=== PATIENT | female | born 2005 | race African-American/Black ===

== ENCOUNTER 2024-06-18 20:46 | Observation (INO) ==
--- NOTE | 2024-06-18 21:07 | Emergency Department Note ---
HPI - Skin/Abscess/Foreign Bdy General Chief complaint: Allergic Reaction Stated complaint: poss hives Time Seen by Provider: 06/18/24 20:48 Source: patient and family Mode of arrival: walk-in Limitations: no limitations History of Present Illness HPI narrative: 18-year-old female presents to ER with complaint of generalized body rash that she has been experiencing off and on for a while, patient reports that she has not taken anything for her rash today. The area is not erythemic; however, it is raised and patient reports that it itches. MD complaint: Reports rash Onset (ago): day(s) (1) Tetanus up to date: yes Location: Reports generalized Severity: moderate Quality: Reports other (Imaging) Pain Consistency: Reports constant Relieving factors: Reports none Exacerbating factors: Reports palpation and movement Context: Reports other (Previous occurrences) Associated symptoms: Reports itching and myalgias Treatments prior to arrival: Reports none Related Data Previous Rx's Medication Instructions Recorded methylprednisolone 4 mg tablets in See Rx Instructions PO .COMPLEX 03/30/24 a dose pack (Medrol ([facility])) Inflammation #21 ea Allergies Allergy/AdvReac Type Severity Reaction Status Date / Time SEAFOOD Allergy Unknown Uncoded 06/18/24 21:26 Review of Systems Status of ROS 10 or more systems reviewed and unremark able except as noted in history and below Constitutional Reports: fatigue; Denies: fever, chills, change in weight, malaise, night sweats or change in sleep pattern Eyes Denies: change in vision, blurry vision, blind spots, light sensitivity, eye discomfort, eye discharge, dry eyes, increased production of tears, floaters, seeing flashes or decreased night vision Ears, nose, mouth, and throat Denies: throat pain, neck pain, throat swelling, difficulty swallowing, hoarseness, mouth pain, swelling of lips/tongue, dry mouth, bad breath, ear pain, ear discharge, change in hearing, tinnitus, vertigo, nasal discharge, nasal congestion, nose bleeds or post nasal drip Cardiovascular Reports: swelling of feet/ankles; Denies: chest pain, palpitations, edema, lightheadedness, shortness of breath with exertion, shortness of breath when lying down, leg pain with exertion or bluish discoloration of hands/feet Respiratory Denies: shortness of breath, cough, wheezing, stridor, pain on inspiration, change in phlegm color, coughing up blood or chest congestion Gastrointestinal Denies: abdominal pain, nausea, vomiting, coffee grounds in vomit, heartburn, diarrhea, constipation, bloating, belching, excessive passing of gas, difficulty swallowing, feeling full early, change in bowel habits, painful bowel movements, rectal pain, rectal swelling, rectal itching, change in stool character, blood in stool, mucus in stool, white/light colored stool or fatty stool Genitourinary Denies: painful urination, urinary frequency, urinary urgency, urinary incontinence, blood in urine, difficulty voiding, decreased urine ouput, pelvic pain, painful menstruation, vaginal bleeding, vaginal discharge, irregular period, change in menstrual flow, absence of menstruation, genital lesion, genital itching, vaginal dryness, vaginal odor, pain during intercourse, difficulty conceiving or change in libido Musculoskeletal Denies: back pain, neck pain, extremity pain, extremity swelling, joint pain, limited range of motion, joint swelling, muscle cramps, muscle weakness or loss of height Integumentary/Breast Reports: rash, itching and skin tenderness; Denies: redness, skin pain, skin swelling, sores, new lesion, changing lesion, non- healing lesion, changes in skin color, jaundice, stretch whyte, acne, nail changes, change in hair, breast pain, breast swelling, nipple discharge, breast mass, breast skin changes or change in breast shape Neurological Denies: headache, numbness in extremities, weakness in extremities, lack of coordination, dizziness, vertigo, confusion, behavioral changes, slurred speech, difficulty communicating thoughts, seizure-like activity or involuntary movements Psychiatric Denies: anxiety, mood swings, panic attacks, change in sleep pattern, hopelessness, loss of interest, irritability, paranoia, memory loss, difficulty concentrating, visual hallucinations, auditory hallucinations, tactile hallucinations, suicidal ideation or homicidal ideation Endocrine Denies: excessive urination, excessive thirst, fatigue, cold intolerance, excessive sweating, flushing, heat intolerance, deepening of the voice, change in body appearance or change in libido Hematologic/Lymphatic Denies: easy bruising, easy bleeding or enlarged lymph nodes Allergic/Immunologic Reports: wheezing; Denies: hives, throat swelling, tongue swelling, facial swelling, itchy eyes, seasonal allergies or food intolerance [facility] Medical History (Updated 03/30/24 @ 15:16 by Jamar Felming NP) Eczema Diabetes Surgical History (Updated 03/30/24 @ 13:11 by Yuly Zarco RN) History of surgery Social History Smoking status: never smoker Do you use any of these nicotine containing products: e-cigarettes Within the past year, how often did you have a drink containing alcohol: never Score interpretation: A score less than 3 is consistent with normal alcohol consumption. Non-prescribed substance use: denies use Feel stressed/tense/nervous/anxious/difficulty sleeping: to some extent Life stressors: other (none) Life stressor details: Current medical condition Due to disability, difficulty making decisions: No Exam Constitutional: normal general appearance, distress noted (moderate), average body habitus, no limitations and alert Vital Signs - 24 hr 06/18/24 21:17 Temperature 97.9 F Pulse Rate 119 H Respiratory Rate 19 Blood Pressure 112/79 Pulse Oximetry 99 Oxygen Delivery Me thod Room Air HENMT: normocephalic, head/scalp atraumatic, hearing grossly normal bilaterally, external ears normal, EACs normal, nasal mucous membranes normal, external nose normal, oral mucous membranes normal, oropharynx normal, dentition normal and gingiva normal Eyes: PERRL, EOMs intact bilaterally, conjunctivae normal, no scleral icterus, no papilledema, normal visual haney by confrontation, alignment normal, periorbital findings normal and no nystagmus Neck/C-Spine: visual inspection normal, trachea midline, cervical spine nontender, cervical full ROM noted, supple, no meningeal signs, thyroid normal and no carotid bruits Lymph: no lymphadenopathy noted and no lymphedema noted Chest: inspection of chest normal, inspection of breast(s) abnormal (deferred) and palpation of breast(s) abnormal (deferred) Respiratory: breath sounds equal bilaterally, normal respiratory effort, clear to auscultation bilaterally, no wheezes, no rales, no retractions and no use of accessory muscles Cardiovascular: normal heart rate noted, regular rhythm noted, no JVD, peripheral pulses 2+ throughout and no additional abnormal heart sounds Gastrointestinal: abdomen normal to inspection, abdomen soft to palpation, nontender to palpation, nondistended, normoactive bowel sounds, no hepatosplenomegaly, no masses, no pulsatile mass, no ascites, no hernia and rectal exam abnormal (deferred) Genitourinary: no CVA tenderness, bladder normal to palpation, vaginal abnormality noted (deferred) and cervical abnormality noted (deferred) Back/Pelvis: spine normal to inspection, no thoracic spine tenderness, no lumbar spine tenderness, thoracic spine ROM normal, lumbar spine ROM normal and no paraspinal muscle tenderness noted Extremities: normal to inspection, normal to palpation, no tenderness, full ROM, no joint enlargement and no deformity Neurology: ink blender II-XII intact, no movement abnormality noted, no focal motor deficit noted, no sensory deficits noted, gait normal, speech normal, coordination normal, no pronator drift noted, no fasciculations noted and GCS normal Psychiatry: Mental Status Exam documented within this Exam's Psych section mental status grossly normal, oriented x3, thought process normal, cooperative, affect normal, psychomotor activity normal and memory normal Feel stressed/tense/nervous/anxious/difficulty sleeping: to some extent Life stressors: other (none) Life stressor details: Current medical condition Due to disability, difficulty making decisions: No Skin: skin color normal, rash noted, no lesions, no ecchymosis noted, no wounds, no lacerations, skin turgor normal, no jaundice, no petechiae, no mottling, nails normal and no alopecia Patient has noted rash about the body is raised but is not erythemic, patient reports she has this rash nearly every day he has not taken anything for today and is not getting better. Course Course Hospital Course: 18-year-old female presented ER with complaint of generalized body rash has been evaluated by physical exam, CBC, BMP, urinalysis, [id number] glucose and has been found to have hyperglycemia and hypokalemia as well as a generalized rash. Patient has been treated with Benadryl, Pepcid, and Solu-Medrol which has right her rash again; however, patient's glucose has been found to be hyperglycemic at over 400 and her potassium is low at 3.1. Patient will receive normal saline IV as well as 10 units of regular insulin and potassium p.o. and will be admitted to the [facility] floor for ongoing electrolyte replacement, glucose control, and monitoring to ensure rash does not return. Patient and family agree with treatment plan. Vital Signs Vital signs: Vital Signs Temperature 97.9 F 06/18/24 21:17 Pulse Rate 119 H 06/18/24 21:17 Respiratory Rate 19 06/18/24 21:17 Blood Pressure 112/79 06/18/24 21:17 Pulse Oximetry 99 06/18/24 21:17 Oxygen Delivery Method Room Air 06/18/24 21:17 Temperature 97.9 F 06/18/24 21:17 Pulse Rate 119 H 06/18/24 21:17 Respiratory Rate 19 06/18/24 21:17 Blood Pressure 112/79 06/18/24 21:17 Pulse Oximetry 99 06/18/24 21:17 Oxygen Delivery Method Room Air 06/18/24 21:17 Discharge Plan Discharge Patient Disposition: Admitted As Observation Condition: Stable Chief Complaint: Allergic Reaction Clinical Impression: Allergic reaction, Uncontrolled diabetes mellitus with hyperglycemia, with lo ng-term current use of insulin, Hypokalemia, Fatigue Prescriptions: No Action methylprednisolone [Medrol ([facility])] 4 mg tablets,dose pack See Rx Instructions .ROUTE .COMPLEX Qty: 21 0RF Rx Instructions: orally per package directions Print Language: Romanian Referrals: Provider,NO PCP [Primary Care Provider] - Time of Disposition: 23:00 MDM - Skin/Abscess/Foreign Bod MDM Narrative Medical decision making narrative: Medical decision making this patient above physical exam, CBC, BMP, urinalysis, and [id number] glucose. Differential Diagnosis Differential diagnosis: Likely viral exanthem, urticaria, cellulitis, eczema, contact dermatitis and other (Hypokalemia, hyperglycemia, hyponatremia, dehydration) Medical Records Attestation: I reviewed the patient's medical records. Lab Data Attestation: I reviewed the patient's lab results. Labs: Lab Results 06/18/24 06/18/24 06/18/24 Range/Units 21:15 21:30 22:16 WBC 11.0 H (4.3-9.3) K/uL RBC 5.2 (4.00-5.50) M/uL Hgb 9.6 L (12.5-15.8) gm/dL Hct 31.7 L (35.9-46.7) % MCV 61.3 L (81.0-93.7) fl MCH 18.6 L (27.6-32.2) pg MCHC 30.4 L (33.1-35.3) g/dl RDW 24.3 H (11.4-14.2) % Plt Count 731 H (152-353) K/uL MPV 8.3 (6.9-10.8) fl Gran % 64.8 (47.8-71.3) % Lymph % (Auto) 25.1 (20.0-43.0) % [place] % (Auto) 7.4 (3.6-9.8) % Eos % (Auto) 1.6 (0.4-2.8) % Baso % (Auto) 1.1 H (0.1-0.85) Lymph # (Auto) 2.8 (1.1-3.1) [place] # (Auto) 0.8 L (1.1-3.1) Eos # (Auto) 0.2 (0.0-0.2) Baso # (Auto) 0.1 (0.0-0.1) Absolute Gran (auto) 7.1 H (2.3-6.0) ABG pH 7.35 (7.35-7.45) ABG pCO2 33 L (35-45) mmHg ABG pO2 92 (60-100) mmHg ABG PO2/FiO2 Ratio ABG HCO3 (22-26) mmo1/L ABG Total CO2 mmo1/L ABG O2 Saturation (92-100) % ABG Base Excess (-2-2) mmo1/L A-a O2 Gradient mmHg Respiratory Index (0-1) FiO2 % Sodium 128 L (136-145) mmol/L Potassium 3.1 L (3.6-5.2) mmol/L Chloride 94.0 L (98-107) mmol/L Carbon Dioxide 22 (21-32) mmol/L Anion Gap 12.0 (4-14) mEq/L BUN 11 (7-18) mg/dL Creatinine 0.9 (0.6-1.3) mg/dL Estimated GFR 93.9 (>59.9) Glucose 410 H* (70-110) mg/dL Calcium 8.2 L (8.5-10.1) mg/dL Urine Color Yellow (STRAW/YELL.) Urine Appearance Hazy (CLEAR) Ur Specific [place] 1.010 (1.001-1.035) Urine Protein Negative (NEGATIVE) Urine Glucose (UA) 4+ (NORMAL) Urine Ketones Large (NEGATIVE) Urine Occult Blood Negative (NEG - TRACE) Urine Nitrite Negative (NEGATIVE) Urine Bilirubin Negative (NEGATIVE) Urine Urobilinogen Normal (NORMAL) Ur Leukocyte Esterase Negative (NEGATIVE) Fluid pH 6.0 (5 - 9) 06/18/24 Range/Units 22:16 WBC (4.3-9.3) K/uL RBC (4.00-5.50) M/uL Hgb (12.5-15.8) gm/dL Hct (35.9-46.7) % MCV (81.0-93.7) fl MCH (27.6-32.2) pg MCHC (33.1-35.3) g/dl RDW (11.4-14.2) % Plt Count (152-353) K/uL MPV (6.9-10.8) fl Gran % (47.8-71.3) % Lymph % (Auto) (20.0-43.0) % [place] % (Auto) (3.6-9.8) % Eos % (Auto) (0.4-2.8) % Baso % (Auto) (0.1-0.85) Lymph # (Auto) (1.1-3.1) [place] # (Auto) (1.1-3.1) Eos # (Auto) (0.0-0.2) Baso # (Auto) (0.0-0.1) Absolute Gran (auto) (2.3-6.0) ABG pH (7.35-7.45) ABG pCO2 (35-45) mmHg ABG pO2 108 (60-100) mmHg ABG PO2/FiO2 Ratio 0.85 ABG HCO3 18.2 L (22-26) mmo1/L ABG Total CO2 19.2 mmo1/L ABG O2 Saturation 97 (92-100) % ABG Base Excess -6.5 L (-2-2) mmo1/L A-a O2 Gradient 16 mmHg Respiratory Index 0.2 (0-1) FiO2 21 % Sodium (136-145) mmol/L Potassium (3.6-5.2) mmol/L Chloride (98-107) mmol/L Carbon Dioxide (21-32) mmol/L Anion Gap (4-14) mEq/L BUN (7-18) mg/dL Creatinine (0.6-1.3) mg/dL Estimated GFR (>59.9) Glucose (70-110) mg/dL Calcium (8.5-10.1) mg/dL Urine Color (STRAW/YELL.) Urine Appearance (CLEAR) Ur Specific [place] (1.001-1.035) Urine Protein (NEGATIVE) Urine Glucose (UA) (NORMAL) Urine Ketones (NEGATIVE) Urine Occult Blood (NEG - TRACE) Urine Nitrite (NEGATIVE) Urine Bilirubin (NEGATIVE) Urine Urobilinogen (NORMAL) Ur Leukocyte Esterase (NEGATIVE) Fluid pH (5 - 9)
[2024-06-18] MEDS: METHYLPREDNISOLONE SOD SUCC/PF 125 MG/2 ML VIAL IVP ONE (21:15)
[2024-06-18] MEDS: diphenhydrAMINE HCL 50 MG/ML VIAL IM ONE (21:15)
[2024-06-18] MEDS: FAMOTIDINE/PF 20 MG/2 ML VIAL IV ONE (21:15)
[2024-06-18 21:32] LABS: Basophils #(Absolute) Auto 0.1 (0.0-0.1); Basophils%(Percent) Auto 1.1 (0.1-0.85); Eosinophils#(Absolute)Auto 0.2 (0.0-0.2); Eosinophils%(Percent) Auto 1.6 % (0.4-2.8); Granulocytes % - Auto 64.8 % (47.8-71.3); Granulocytes#(Absolute)- Auto 7.1 (2.3-6.0); Hematocrit 31.7 % (35.9-46.7); Mean Corpuscular Volume 61.3 fl (81.0-93.7); Monocytes #(Absolute)- Auto 0.8 (1.1-3.1); Monocytes %(Percent)- Auto 7.4 % (3.6-9.8); Platelet Count 731 K/uL (152-353)
[2024-06-18 21:44] LABS: Potassium 3.1 mmol/L (3.6-5.2)
[2024-06-18 22:02] LABS: Urine Appearance HAZY (CLEAR); Urine Blood NEGATIVE (NEG - TRACE); Urine Color YELLOW (STRAW/YELL.); Urine Urobilinogen Normal (NORMAL)
[2024-06-18 22:26] LABS: Base Excess ABG -6.5 mmo1/L (-2-2); Oxygen Saturation ABG 97 % (92-100); PCO2 ABG 33 mmHg (35-45); PO2 ABG 92 mmHg (60-100); pH ABG 7.35 (7.35-7.45)
[2024-06-18] MEDS ORDERED: bisacodyL 10 MG SUPP.RECT PR PRN (23:47)
[2024-06-18] MEDS ORDERED: KETOROLAC 30 MG/ML INJ VIAL IVP PRN (23:47)
[2024-06-18] MEDS ORDERED: ACETAMINOPHEN 1000 MG/100 ML 1,000 MG/100 ML IV.SOLN IV PRN (23:47)
[2024-06-18] MEDS ORDERED: ONDANSETRON HCL/PF 4 MG/2 ML VIAL INJ PRN (23:47)
[2024-06-18] MEDS ORDERED: MORPHINE SULFATE 4 MG/ML CARTRIDGE IV PRN (23:47)
[2024-06-18] MEDS ORDERED: MAGNESIUM, ALUMINUM HYDROXIDE 30 ML ORAL.SUSP PO PRN (23:47)
[2024-06-19] MEDS: 0.9 % SODIUM CHLORIDE 1000 ML 1,000 ML IV SCH ×2 (00:20→08:41)
[2024-06-19] MEDS: 0.9 % SODIUM CHLORIDE 1000 ML 1,000 ML IV STA (00:22)
[2024-06-19] MEDS: diphenhydrAMINE HCL 25 MG CAP PO ONE (04:10)
[2024-06-19 05:18] LABS: Potassium 3.6 mmol/L (3.6-5.2)
[2024-06-19 05:31] LABS: Granulocytes % - Auto 93.9 % (47.8-71.3); Granulocytes#(Absolute)- Auto 10.4 (2.3-6.0); Hematocrit 29.6 % (35.9-46.7); Mean Corpuscular Volume 64.4 fl (81.0-93.7); Monocytes #(Absolute)- Auto 0.1 (1.1-3.1); Monocytes %(Percent)- Auto 0.7 % (3.6-9.8); Platelet Count 594 K/uL (152-353); White Blood Count 11.1 K/uL (4.3-9.3)
[2024-06-19 05:54] LABS: Anisocytosis 1+ (Negative); Hypochromia 2+ (20-21) (None Seen)
[2024-06-19] MEDS: POTASSIUM CHLORIDE 20 MEQ TAB.ER.PRT PO ONE (08:41)
[2024-06-19] MEDS: MAGNESIUM OXIDE 400 MG TABLET PO SCH (08:41)
[2024-06-19] MEDS: POTASSIUM CHLORIDE 20 MEQ TAB.ER.PRT PO SCH (09:31)
[2024-06-19 09:51] LABS: Potassium 3.6 mmol/L (3.6-5.2)
[2024-06-19 09:55] LABS: PCO2 ABG 28 mmHg (35-45); PO2 ABG 105 mmHg (60-100); pH ABG 7.35 (7.35-7.45)
[2024-06-19 09:56] LABS: Base Excess ABG -8.7 mmo1/L (-2-2); Oxygen Saturation ABG 98 % (92-100)
--- NOTE | 2024-06-19 15:23 | History & Physical Report ---
H&P: HPI History of Present Illness Chief complaint: hyperglycemia, hypokalemia, uncontrolled hyperglyc Narrative: 18-year-old female presented to the ER with complaint of generalized body rash that she has been experiencing off and on for a while, patient reports that she has not taken anything for her rash today. The area is not erythemic; however, it is raised and patient reports that it itches. Admitted to med/surg for further observation and treatment. Day one of hospital stay, patient has concerns about elevated glucose levels. Nurse provided reassurance and patient education on side effects of steroids for diabetics and possibility glucose is elevated secondary to the medication. Patient is being covered by insulin per sliding scale protocol. Nurse stated patient has no PCP, however, she provided a list of local providers for her to choose from or she is welcome to find her own; we will be happy to assist in setting up a new patient appt upon discharge from hospital stay. DKA was ruled out due to negative acidosis and ABG in normal limits. Review of Systems Status of ROS 10 or more systems reviewed and unremark able except as noted in history and below Constitutional Denies: fever, chills, change in weight, fatigue, malaise, night sweats or change in sleep pattern Eyes Denies: change in vision, blurry vision, blind spots, light sensitivity, eye discomfort, eye discharge, dry eyes, increased production of tears, floaters, seeing flashes or decreased night vision Ears, nose, mouth, and throat Denies: throat pain, neck pain, throat swelling, difficulty swallowing, hoarseness, mouth pain, swelling of lips/tongue, dry mouth, bad breath, ear pain, ear discharge, change in hearing, tinnitus, vertigo, nasal discharge, nasal congestion, nose bleeds or post nasal drip Cardiovascular Reports: swelling of feet/ankles; Denies: chest pain, palpitations, edema, lightheadedness, shortness of breath with exertion, shortness of breath when lying down, leg pain with exertion or bluish discoloration of hands/feet Respiratory Reports: wheezing; Denies: shortness of breath, cough, stridor, pain on inspiration, change in phlegm color, coughing up blood or chest congestion Gastrointestinal Denies: abdominal pain, nausea, vomiting, coffee grounds in vomit, heartburn, diarrhea, constipation, bloating, belching, excessive passing of gas, difficulty swallowing, feeling full early, change in bowel habits, painful bowel movements, rectal pain, rectal swelling, rectal itching, change in stool character, blood in stool, mucus in stool, white/light colored stool or fatty stool Genitourinary Denies: painful urination, urinary frequency, urinary urgency, urinary incontinence, blood in urine, difficulty voiding, decreased urine ouput, pelvic pain, painful menstruation, vaginal bleeding, vaginal discharge, i rregular period, change in menstrual flow, absence of menstruation, genital lesion, genital itching, vaginal dryness, vaginal odor, pain during intercourse, difficulty conceiving or change in libido Musculoskeletal Denies: back pain, neck pain, extremity pain, extremity swelling, joint pain, limited range of motion, joint swelling, muscle cramps, muscle weakness or loss of height Integumentary/Breast Reports: rash, itching and skin tenderness; Denies: redness, skin pain, skin swelling, sores, new lesion, changing lesion, non- healing lesion, changes in skin color, jaundice, stretch whyte, acne, nail changes, change in hair, breast pain, breast swelling, nipple discharge, breast mass, breast skin changes or change in breast shape Neurological Denies: headache, numbness in extremities, weakness in extremities, lack of coordination, dizziness, vertigo, confusion, behavioral changes, slurred speech, difficulty communicating thoughts, seizure-like activity or involuntary movements Psychiatric Denies: anxiety, mood swings, panic attacks, change in sleep pattern, hopelessness, loss of interest, irritability, paranoia, memory loss, difficulty concentrating, visual hallucinations, auditory hallucinations, tactile hallucinations, suicidal ideation or homicidal ideation Endocrine Denies: excessive urination, excessive thirst, fatigue, cold intolerance, excessive sweating, flushing, heat intolerance, deepening of the voice, change in body appearance or change in libido Hematologic/Lymphatic Denies: easy bruising, easy bleeding or enlarged lymph nodes Allergic/Immunologic Reports: wheezing; Denies: hives, throat swelling, tongue swelling, facial swelling, itchy eyes, seasonal allergies or food intolerance [facility] Medical History Eczema Diabetes Hyperglycemia Surgical History History of surgery Social History (Reviewed 06/20/24 @ 08:32 by AASHISH Pascual Smoking status: never smoker Do you use any of these nicotine containing products: e-cigarettes Within the past year, how often did you have a drink containing alcohol: never Score interpretation: A score less than 3 is consistent with normal alcohol consumption. Non-prescribed substance use: denies use Problems where you live: no known problems Highest level of school completed/degree received: high school Feel stressed/tense/nervous/anxious/difficulty sleeping: to some extent Life stressors: other (none) Life stressor details: Current medical condition Due to disability, difficulty making decisions: No Meds Home Medications and Allergies Home Medications Medication Instructions Recorded Confirmed Type methylprednisolone 4 mg tablets in See Rx Instructions PO .COMPLEX 03/30/24 Rx a dose pack (Medrol (Sulaiamn)) Inflammation #21 ea Allergies Allergy/AdvReac Type Severity Reaction Status Date / Time SEAFOOD Allergy Unknown Uncoded 06/18/24 21:26 Exam Exam: Patient in low early's position upon entering room for exam. Constitutional: normal general appearance, distress noted (mild), average body habitus, no limitations and alert Vital Signs - 24 hr 06/18/24 21:00 06/18/24 21:30 06/18/24 22:00 Temperature 97.9 F Pulse Rate 106 H 119 H 101 H Pulse Rate [Bilate ral] Respiratory Rate 19 19 19 Blood Pressure 110/70 112/79 110/64 Blood Pressure [Le ft Radial Artery] Pulse Oximetry 99 99 98 Oxygen Delivery Me od Room Air Room Air Room Air 06/18/24 22:30 06/18/24 23:00 06/18/24 23:30 Temperature Pulse Rate 97 H 96 H 99 H Pulse Rate [Bilate ral] Respiratory Rate 18 18 19 Blood Pressure 111/70 105/69 110/71 Blood Pressure [Le ft Radial Artery] Pulse Oximetry 99 99 99 [facility] 06/19/24 00:00 06/19/24 00:00 06/19/24 00:15 Temperature 98.8 F Pulse Rate 100 H 100 H Pulse Rate [Bilate ral] 96 H Respiratory Rate 19 14 19 Blood Pressure 101/69 101/69 Blood Pressure [Le ft Radial Artery] 113/63 Pulse Oximetry 99 96 99 [facility] 06/19/24 03:51 06/19/24 08:00 06/19/24 12:00 Temperature 98.3 F 97.8 F 98.2 F Pulse Rate Pulse Rate [Bilate ral] 91 H 94 H 92 H Respiratory Rate 16 19 18 Blood Pressure Blood Pressure [Le ft Radial Artery] 98/59 108/65 99/60 Pulse Oximetry 99 100 99 Oxygen Delivery Me thod Room Air Room Air Room Air HENMT: normocephalic, head/scalp atraumatic, hearing grossly normal bilaterally, external ears normal, EACs normal, nasal mucous membranes normal, external nose normal, oral mucous membranes normal, oropharynx normal, dentition normal and gingiva normal Eyes: PERRL, EOMs intact bilaterally, conjunctivae normal, no scleral icterus, no papilledema, normal visual haney by confrontation, alignment normal, periorbital findings normal and no nystagmus Neck/C-Spine: visual inspection normal, trachea midline, cervical spine nontender, cervical full ROM noted, supple, no meningeal signs, thyroid normal and no carotid bruits Lymph: no lymphadenopathy noted and no lymphedema noted Chest: inspection of chest normal, inspection of breast(s) abnormal (deferred) and palpation of breast(s) abnormal (deferred) Respiratory: breath sounds equal bilaterally, normal respiratory effort, clear to auscultation bilaterally, no wheezes, no rales, no retractions and no use of accessory muscles Cardiovascular: normal heart rate noted, regular rhythm noted, no JVD, peripheral pulses 2+ throughout and no additional abnormal heart sounds Gastrointestinal: abdomen normal to inspection, abdomen soft to palpation, nontender to palpation, nondistended, normoactive bowel sounds, no hepatosplenomegaly, no masses, no pulsatile mass, no ascites, no hernia and rectal exam abnormal (deferred) Genitourinary: no CVA tenderness, bladder normal to palpation, vaginal abnormality noted (deferred) and cervical abnormality noted (deferred) Back/Pelvis: spine normal to inspection, no thoracic spine tenderness, no lumbar spine tenderness, thoracic spine ROM normal, lumbar spine ROM normal and no paraspinal muscle tenderness noted Extremities: normal to inspection, normal to palpation, no tenderness, full ROM, no joint enlargement and no deformity Neurology: nursing consultant II-XII intact, no movement abnormality noted, no focal motor deficit noted, no sensory deficits noted, gait normal, speech normal, coordination normal, no pronator drift noted, no fasciculations noted and GCS normal Psychiatry: Mental Status Exam documented within this Exam's Psych section mental status grossly normal, oriented x3, thought process normal, cooperative, affect normal, psychomotor activity normal and memory normal Skin: skin color normal, rash noted, no lesions, no ecchymosis noted, no wounds, no lacerations, skin turgor normal, no jaundice, no petechiae, no mottling, nails normal and no alopecia Patient has noted rash about the body is raised but is not erythemic, patient reports she has this rash nearly every day he has not taken anything for today and is not getting better. Assessment and Plan Assessment and Plan (1) Hyperosmolar hyperglycemic state (HHS): Code(s): E11.00 - Type 2 diabetes mellitus with hyperosmolarity without nonketotic hyperglycemic-hyperosmolar coma (NKHHC) (2) Urticaria: Code(s): L50.9 - Urticaria, unspecified (3) Diabetes: Qualifiers: Diabetes mellitus complication status: with hyperglycemia Diabetes mellitus skilled nursing insulin use: unspecified skilled nursing insulin use status Diabetes mellitus type: type 2 Qualified Code(s): E11.65 - Type 2 diabetes mellitus with hyperglycemia Code(s): E11.9 - Type 2 diabetes mellitus without complications (4) Eczema: Qualifiers: Eczema type: unspecified Qualified Code(s): L30.9 - Dermatitis, unspecified Code(s): L30.9 - Dermatitis, unspecified (5) Allergic reaction: Qualifiers: Encounter type: initial encounter Qualified Code(s): T78.40XA - Allergy, unspecified, initial encounter Code(s): T78.40XA - Allergy, unspecified, initial encounter (6) Hyperglycemia: Code(s): R73.9 - Hyperglycemia, unspecified Plan Sodium Chloride 1, 000 mls @ 150 mls/hr IV CONT Sodium Chloride 1,000 mls Bolus Potassium Chloride 40 meq PO DAILY Magnesium Oxide 400 mg PO DAILY Magnesium Hydroxide 30 ml PO DAILY PRN Bisacodyl 10 mg [place] DAILY PRN Ketorolac Tromethamine 15 mg IVP Q6H PRN Ondansetron Hcl 4 mg INJ Q6H PRN Insulin Regular per sliding scale SUBQ PRN Acetaminophen 1,000 mg in 100 mls @ 400 mls/hr IV Q6H PRN Results Labs Labs: CBC WBC 11.1 K/uL (4.3-9.3) H 06/19/24 04:35 RBC 4.6 M/uL (4.00-5.50) 06/19/24 04:35 Hgb 8.4 gm/dL (12.5-15.8) L 06/19/24 04:35 Hct 29.6 % (35.9-46.7) L 06/19/24 04:35 MCV 64.4 fl (81.0-93.7) L 06/19/24 04:35 MCH 18.4 pg (27.6-32.2) L 06/19/24 04:35 MCHC 28.5 g/dl (33.1-35.3) L 06/19/24 04:35 RDW 24.4 % (11.4-14.2) H 06/19/24 04:35 Plt Count 594 K/uL (152-353) H 06/19/24 04:35 MPV 8.5 fl (6.9-10.8) 06/19/24 04:35 Gran % 93.9 % (47.8-71.3) H 06/19/24 04:35 Lymph % (Auto) 5.4 % (20.0-43.0) L 06/19/24 04:35 [place] % (Auto) 0.7 % (3.6-9.8) L 06/19/24 04:35 Eos % (Auto) 0.0 % (0.4-2.8) L 06/19/24 04:35 Baso % (Auto) 0.0 (0.1-0.85) L 06/19/24 04:35 Lymph # (Auto) 0.6 (1.1-3.1) L 06/19/24 04:35 [place] # (Auto) 0.1 (1.1-3.1) L 06/19/24 04:35 Eos # (Auto) 0.0 (0.0-0.2) 06/19/24 04:35 Baso # (Auto) 0.0 (0.0-0.1) 06/19/24 04:35 Absolute Gran (auto) 10.4 (2.3-6.0) H 06/19/24 04:35 BMP Sodium 128 mmol/L (136-145) L 06/19/24 09:35 Potassium 3.6 mmol/L (3.6-5.2) 06/19/24 09:35 Chloride 96.0 mmol/L (98-107) L 06/19/24 09:35 Carbon Dioxide 20 mmol/L (21-32) L 06/19/24 09:35 Anion Gap 12.0 mEq/L (4-14) 06/19/24 09:35 BUN 12 mg/dL (7-18) 06/19/24 09:35 Creatinine 0.8 mg/dL (0.6-1.3) 06/19/24 09:35 Estimated GFR 108.1 (>59.9) 06/19/24 09:35 Glucose 394 mg/dL (70-110) H 06/19/24 09:35 Calcium 8.5 mg/dL (8.5-10.1) 06/19/24 09:35 Magnesium 1.6 mg/dL (1.8-2.4) L 06/19/24 04:35 Urine Urine Color Yellow (STRAW/YELL.) 06/18/24 21:30 Urine Appearance Hazy (CLEAR) 06/18/24 21:30 Ur Specific [place] 1.010 (1.001-1.035) 06/18/24 21:30 Urine Protein Negative (NEGATIVE) 06/18/24 21:30 Urine Glucose (UA) 4+ (NORMAL) 06/18/24 21:30 Urine Ketones Large (NEGATIVE) 06/18/24 21:30 Urine Occult Blood Negative (NEG - TRACE) 06/18/24 21:30 Urine Nitrite Negative (NEGATIVE) 06/18/24 21:30 Urine Bilirubin Negative (NEGATIVE) 06/18/24 21:30 Urine Urobilinogen Normal (NORMAL) 06/18/24 21:30 Ur Leukocyte Esterase Negative (NEGATIVE) 06/18/24 21:30 ABG ABG results: 06/18/24 06/19/24 22:16 09:18 ABG pH 7.35 7.35 ABG pCO2 33 L 28 L ABG pO2 108 115 ABG HCO3 18.2 L 15.5 L ABG Total CO2 19.2 16.4 ABG O2 Saturation 97 98 ABG Base Excess -6.5 L -8.7 L
[2024-06-19] MEDS: FAMOTIDINE/PF 20 MG/2 ML VIAL IV PRN (20:39)
[2024-06-19] MEDS: diphenhydrAMINE HCL 25 MG CAP PO PRN (20:39)
[2024-06-20 04:58] LABS: Basophils%(Percent) Auto 0.3 (0.1-0.85); Eosinophils%(Percent) Auto 0.3 % (0.4-2.8); Granulocytes#(Absolute)- Auto 4.3 (2.3-6.0); Hematocrit 26.5 % (35.9-46.7); Mean Corpuscular Volume 60.9 fl (81.0-93.7); Monocytes #(Absolute)- Auto 0.4 (1.1-3.1); Monocytes %(Percent)- Auto 5.3 % (3.6-9.8); Platelet Count 528 K/uL (152-353); White Blood Count 8.2 K/uL (4.3-9.3)
[2024-06-20 05:45] LABS: Potassium 3.1 mmol/L (3.6-5.2)
[2024-06-20] MEDS: ASPIRIN 81 MG TABLET.DR PO SCH (10:10)
[2024-06-20] MEDS: MAGNESIUM OXIDE 400 MG TABLET PO ONE (10:13)
[2024-06-20] MEDS: POTASSIUM CHLORIDE 20 MEQ TAB.ER.PRT PO ONE ×2 (10:13→11:07)
[2024-06-20] MEDS: POTASSIUM CHLORIDE IN WATER 10 MEQ/100 ML PIGGYBACK IV ONE (11:04)
[2024-06-20] MEDS: POTASSIUM CL 20 MEQ/100 ML SOL 20 MEQ/100 ML PIGGYBACK IV ONE (11:07)
[2024-06-20] MEDS ORDERED: POTASSIUM CHLORIDE 20 MEQ TAB.ER.PRT PO ONE (13:00)
[2024-06-20] MEDS: INSULIN GLARGINE-YFGN 100 UNIT/ML INSULN.PEN SUBQ SCH ×2 (13:07→22:29)
--- NOTE | 2024-06-20 15:26 | Progress Note ---
Progress Note: Subjective Subjective Interval history: Patient had an allergic-like episode through the night per nursing staff. Patient experienced hives all over their body, Benadryl was administered. Reaction continued with swelling, then Benadryl and Pepcid was administered. Glucose has come down from critical level of 437 to 305. A1C is > 14.0. Electrolytes need replenishment. Exam Exam: Patient in low early's position upon entering room for exam. Constitutional: normal general appearance, distress noted (mild), average body habitus, no limitations and alert Vital Signs - 24 hr 06/19/24 16:00 06/19/24 19:19 06/20/24 00:00 Temperature 98.7 F 98.7 F 98.6 F Pulse Rate [Bilate ral] 96 H 106 H 104 H Respiratory Rate 19 16 15 Blood Pressure [Le ft Radial Artery] 100/64 116/77 99/55 Pulse Oximetry 100 100 99 Oxygen Delivery Me thod Room Air Room Air Room Air 06/20/24 03:40 06/20/24 07:45 06/20/24 11:44 Temperature 98.4 F 98.3 F 98 F Pulse Rate [Bilate ral] 90 107 H 109 H Respiratory Rate 14 20 20 Blood Pressure [Le ft Radial Artery] 101/54 94/58 166/67 Pulse Oximetry 99 100 100 Oxygen Delivery Mn thod Room Air Room Air Room Air HENMT: normocephalic, head/scalp atraumatic, hearing grossly normal bilaterally, external ears normal, EACs normal, nasal mucous membranes normal, external nose normal, oral mucous membranes normal, oropharynx normal, dentition normal and gingiva normal Eyes: PERRL, EOMs intact bilaterally, conjunctivae normal, no scleral icterus, no papilledema, normal visual haney by confrontation, alignment normal, periorbital findings normal and no nystagmus Neck/C-Spine: visual inspection normal, trachea midline, cervical spine nontender, cervical full ROM noted, supple, no meningeal signs, thyroid normal and no carotid bruits Lymph: no lymphadenopathy noted and no lymphedema noted Chest: inspection of chest normal Respiratory: breath sounds equal bilaterally, normal respiratory effort, clear to auscultation bilaterally, no wheezes, no rales, no retractions and no use of accessory muscles Cardiovascular: normal heart rate noted, regular rhythm noted, no JVD, peripheral pulses 2+ throughout and no additional abnormal heart sounds Gastrointestinal: abdomen normal to inspection, abdomen soft to palpation, nontender to palpation, nondistended, normoactive bowel sounds, no hepatosplenomegaly, no masses, no pulsatile mass, no ascites and no hernia Genitourinary: no CVA tenderness and bladder normal to palpation Back/Pelvis: spine normal to inspection, no thoracic spine tenderness, no lumbar spine tenderness, thoracic spine ROM normal, lumbar spine ROM normal and no paraspinal muscle tenderness noted Extremities: normal to inspection, normal to palpation, no tenderness, full ROM, no joint enlargement and no deformity Neurology: contract attorney II-XII intact, no movement abnormality noted, no focal motor deficit noted, no sensory deficits noted, gait normal, speech normal, coordination normal, no pronator drift noted, no fasciculations noted and GCS normal Psychiatry: Mental Status Exam documented within this Exam's Psych section mental status grossly normal, oriented x3, thought process normal, cooperative, affect normal, psychomotor activity normal and memory normal Skin: skin color normal, rash noted, no lesions, no ecchymosis noted, no wounds, no lacerations, skin turgor normal, no jaundice, no petechiae, no mottling, nails normal and no alopecia Patient has noted rash about the body is raised but is not erythemic, patient reports she has this rash nearly every day she has not taken anything for today and is not getting better. Progress Note: Objective Labs Labs: CBC WBC 8.2 K/uL (4.3-9.3) 06/20/24 04:50 RBC 4.4 M/uL (4.00-5.50) 06/20/24 04:50 Hgb 8.0 gm/dL (12.5-15.8) L 06/20/24 04:50 Hct 26.5 % (35.9-46.7) L 06/20/24 04:50 MCV 60.9 fl (81.0-93.7) L 06/20/24 04:50 MCH 18.4 pg (27.6-32.2) L 06/20/24 04:50 MCHC 30.2 g/dl (33.1-35.3) L 06/20/24 04:50 RDW 24.6 % (11.4-14.2) H 06/20/24 04:50 Plt Count 528 K/uL (152-353) H 06/20/24 04:50 MPV 8.3 fl (6.9-10.8) 06/20/24 04:50 Gran % 52.0 % (47.8-71.3) 06/20/24 04:50 Lymph % (Auto) 42.1 % (20.0-43.0) 06/20/24 04:50 [place] % (Auto) 5.3 % (3.6-9.8) 06/20/24 04:50 Eos % (Auto) 0.3 % (0.4-2.8) L 06/20/24 04:50 Baso % (Auto) 0.3 (0.1-0.85) 06/20/24 04:50 Lymph # (Auto) 3.5 (1.1-3.1) H 06/20/24 04:50 [place] # (Auto) 0.4 (1.1-3.1) L 06/20/24 04:50 Eos # (Auto) 0.0 (0.0-0.2) 06/20/24 04:50 Baso # (Auto) 0.0 (0.0-0.1) 06/20/24 04:50 Absolute Gran (auto) 4.3 (2.3-6.0) 06/20/24 04:50 BMP Sodium 137 mmol/L (136-145) 06/20/24 04:50 Potassium 3.1 mmol/L (3.6-5.2) L 06/20/24 04:50 Chloride 104.0 mmol/L (98-107) 06/20/24 04:50 Carbon Dioxide 25 mmol/L (21-32) 06/20/24 04:50 Anion Gap 8.0 mEq/L (4-14) 06/20/24 04:50 BUN 8 mg/dL (7-18) 06/20/24 04:50 Creatinine 0.5 mg/dL (0.6-1.3) L 06/20/24 04:50 Estimated GFR 137.6 (>59.9) 06/20/24 04:50 Glucose 305 mg/dL (70-110) H 06/20/24 04:50 Hemoglobin A1c >14.0 % (4.8-6.0) H 06/20/24 06:00 Calcium 7.8 mg/dL (8.5-10.1) L 06/20/24 04:50 Phosphorus 2.6 mg/dL (2.5-4.9) 06/20/24 04:50 Magnesium 1.7 mg/dL (1.8-2.4) L 06/20/24 04:50 Urine Urine Color Yellow (STRAW/YELL.) 06/18/24 21: Urine Appearance Hazy (CLEAR) 06/18/24 21:30 Ur Specific [place] 1.010 (1.001-1.035) 06/18/24 21:30 Urine Protein Negative (NEGATIVE) 06/18/24 21: Urine Glucose (UA) 4+ (NORMAL) 06/18/24 21: Urine Ketones Large (NEGATIVE) 06/18/24 21: Urine Occult Blood Negative (NEG - TRACE) 06/18/24 21: Urine Nitrite Negative (NEGATIVE) 06/18/24 21: Urine Bilirubin Negative (NEGATIVE) 06/18/24 21: Urine Urobilinogen Normal (NORMAL) 06/18/24 21:30 Ur Leukocyte Esterase Negative (NEGATIVE) 06/18/24 21:30 Progress Note: A&P Assessment and Plan (1) Hyperosmolar hyperglycemic state (HHS): (2) Urticaria: Assessment and Plan: benadryl and pepcid prn (3) Thrombocytosis, unspecified: Assessment and Plan: start aspirin as platelets improving with fluids and sugar correction (4) Dehydration: Assessment and Plan: continue IV and oral hydration (5) Diabetes: Qualifiers: Diabetes mellitus complication status: with hyperglycemia Diabetes mellitus custodial insulin use: unspecified terminal carman insulin use status Diabetes mellitus type: type 2 Qualified Code(s): E11.65 - Type 2 diabetes m ellitus with hyperglycemia (6) Eczema: Qualifiers: Eczema type: unspecified Qualified Code(s): L30.9 - Dermatitis, unspecified (7) Allergic reaction: Assessment and Plan: will send home with an Epinephrine pen for patient to use if shortness of breath and or oral airway swelling develops with the recurring urticaria patient has had almost daily for months. she is to follow up with an pharmacist in charge at [facility] Qualifiers: Encounter type: initial encounter Qualified Code(s): T78.40XA - Allergy , unspecified, initial encounter (8) Hyperglycemia: (9) Hypokalemia: (10) Hypomagnesemia: Plan AU recommends Distribution Technician Add Lantis for blood sugar control Sodium Chloride 1, 000 mls @ 150 mls/hr IV CONT Sodium Chloride 1,000 mls Bolus Potassium Chloride 40 meq PO DAILY Magnesium Oxide 400 mg PO DAILY Magnesium Hydroxide 30 ml PO DAILY PRN Bisacodyl 10 mg NM DAILY PRN Ketorolac Tromethamine 15 mg IVP Q6H PRN Ondansetron Hcl 4 mg INJ Q6H PRN Insulin Regular per sliding scale SUBQ PRN Acetaminophen 1,000 mg in 100 mls @ 400 mls/hr IV Q6H PRN Fall Risk Details Lucero Fall Scale Risk Level: Moderate Fall Risk Current Medications: Current Medications Aspirin (Aspirin 81 Mg Tablet.Dr) 81 mg PO DAILY [facility] Last Admin: 06/20/24 10:10 Dose: 81 mg Bisacodyl (Bisacodyl 10 Mg Supp.Rect) 10 mg NM DAILY PRN PRN Reason: Constipation Diphenhydramine HCl (Diphenhydramine Hcl 25 Mg Cap) 25 mg PO Q4H PRN PRN Reason: Itching Last Admin: 06/20/24 03:20 Dose: 25 mg Famotidine (Famotidine/Pf 20 Mg/2 Ml Vial) 40 mg IV BID PRN PRN Reason: Allergic Symptoms Last Admin: 06/19/24 20:39 Dose: 40 mg Sodium Chloride (Sodium Chloride) 1,000 mls @ 150 mls/hr IV CONT [facility] Last Admin: 06/20/24 10:09 Dose: 75 mls/hr Acetaminophen (Acetaminophen 1000 Mg/100 Ml) 1,000 mg in 100 mls @ 400 mls/hr IV Q6H PRN PRN Reason: Pain Insulin Glargine-yfgn (Insulin Glargine-Yfgn 100 Unit/Ml Insuln.Pen) 15 unit SUBQ BID [facility] Last Admin: 06/20/24 13:07 Dose: 15 unit Insulin Human Regular (Insulin Regular, Human 100 Unit/Ml) 0 unit SUBQ ACHS PRN; Protocol PRN Reason: Blood Sugar - High Last Admin: 06/20/24 11:47 Dose: 6 unit Ketorolac Tromethamine (Ketorolac 30 Mg/Ml Inj Vial) 15 mg IVP Q6H PRN PRN Reason: Moderate Pain SCALE 5-7 Stop: 06/23/24 23:46 Magnesium (Magnesium Oxide 400 Mg Tablet) 400 mg PO DAILY [facility] Last Admin: 06/20/24 08:00 Dose: 400 mg Magnesium Hydroxide (Magnesium, Aluminum Hydroxide 30 Ml Oral.Susp) 30 ml PO DAILY PRN PRN Reason: Heartburn Ondansetron HCl (Ondansetron Hcl/Pf 4 Mg/2 Ml Vial) 4 mg INJ Q6H PRN PRN Reason: Nausea And Vomiting Potassium Chloride (Potassium Chloride 20 Meq Tab.Er.Prt) 40 meq PO DAILY [facility] Last Admin: 06/20/24 08:00 Dose: 40 meq Time Spent With Patient Time: Total time spent is greater than 50% in coordination of care (as documented) at patient's floor/unit and/or counseling patient:
[2024-06-20] MEDS: ATORVASTATIN CALCIUM 10 MG TABLET PO SCH (16:51)
[2024-06-21 05:34] LABS: Basophils%(Percent) Auto 0.2 (0.1-0.85); Eosinophils#(Absolute)Auto 0.2 (0.0-0.2); Eosinophils%(Percent) Auto 1.8 % (0.4-2.8); Granulocytes % - Auto 49.5 % (47.8-71.3); Granulocytes#(Absolute)- Auto 4.6 (2.3-6.0); Hematocrit 25.9 % (35.9-46.7); Mean Corpuscular Volume 60.9 fl (81.0-93.7); Monocytes #(Absolute)- Auto 0.7 (1.1-3.1); Monocytes %(Percent)- Auto 7.3 % (3.6-9.8); Platelet Count 461 K/uL (152-353); White Blood Count 9.4 K/uL (4.3-9.3)
[2024-06-21 06:26] VITALS: RESP 19
[2024-06-21 06:42] VITALS: TEMP 98.7
[2024-06-21 08:06] VITALS: BP 93/58; PULSE 88
[2024-06-21 08:21] LABS: Carbon Dioxide 29 mmol/L (21-32); Glucose 220 mg/dL (70-110); Potassium 3.6 mmol/L (3.6-5.2); Sodium 134 mmol/L (136-145)
[2024-06-21] MEDS: lisinopriL 5 MG TABLET PO SCH (08:34)
--- NOTE | 2024-06-21 12:21 | Discharge Summary ---
DS: Providers Provider Date of admission: 06/18/24 23:48 Primary care physician: Ramiro Liriano Admitting clinician: Jamar Fleming Attending physician on admission: Shasha Huynh Attending physician on discharge: Luis Armando Cristina Discharging clinician: Luis Armando Cristina Anticipated date of discharge: 06/21/24 DS: Diagnosis Discharge Diagnosis (1) Hyperosmolar hyperglycemic state (HHS): Assessment and plan: resolved (2) Thrombocytosis, unspecified: (3) Dehydration: Assessment and plan: resolved (4) Diabetes: Assessment and plan: uncontrolled Qualifiers: Diabetes mellitus complication status: with hyperglycemia Diabetes mellitus long term acute care registered nurse insulin use: unspecified long term acute care registered nurse insulin use status Diabetes mellitus type: type 2 Qualified Code(s): E11.65 - Type 2 diabetes mellitus with hyperglycemia (5) Eczema: Assessment and plan: stable Qualifiers: Eczema type: unspecified Qualified Code(s): L30.9 - Dermatitis, unspecified (6) Allergic reaction: Assessment and plan: resolved Qualifiers: Encounter type: initial encounter Qualified Code(s): T78.40XA - Allergy, unspecified, initial encounter (7) Hyperglycemia: Assessment and plan: improving (8) Hypokalemia: Assessment and plan: resolved (9) Hypomagnesemia: Assessment and plan: resolved Plan discharge home on insulin DS: Summary Hospital Course Hospital Course: From admission: 18-year-old female presented ER with complaint of generalized body rash has been evaluated by physical exam, CBC, BMP, urinalysis, [id number] glucose and has been found to have hyperglycemia and hypokalemia as well as a generalized rash. Patient has been treated with Benadryl, Pepcid, and Solu-Medrol which has right her rash again; however, patient's glucose has been found to be hyperglycemic at over 400 and her potassium is low at 3.1. Patient will receive normal saline IV as well as 10 units of regular insulin and potassium p.o. and will be admitted to the [facility] floor for ongoing electrolyte replacement, glucose control, and monitoring to ensure rash does not return. Patient and family agree with treatment plan. Pt responded well to IVFs and insulin. Electrolytes appropriate this AM and tolerating diet. Sugars still consistently over 200, but not over 300. Has insulin at home and plans to see her PCP next week. Discharged home in improved, stable condition with instructions to discuss a CGM and pump. Status at Discharge Functional status at discharge: independent ambulation Overall status at discharge: patient is progressing back to baseline Time Spent with Patient Time attestation: Total time spent providing and/or coordinating discharge services: Time spent: less than 30 minutes Exam Constitutional: normal general appearance, no apparent distress, average body habitus, no limitations and alert Vital Signs - 24 hr 06/20/24 16:00 06/20/24 20:00 06/21/24 00:00 Temperature 98.7 F 97.8 F 98.1 F Pulse Rate [Bilate ral] 96 H 99 H 101 H Respiratory Rate 19 18 18 Blood Pressure [Le ft Radial Artery] 89/53 98/64 88/53 Pulse Oximetry 100 100 100 Oxygen Delivery Me thod Room Air Room Air Room Air 06/21/24 04:00 06/21/24 08:00 Temperature 98.7 F 98.7 F Pulse Rate [Bilate ral] 86 88 Respiratory Rate 19 19 Blood Pressure [Le ft Radial Artery] 93/55 93/58 Pulse Oximetry 98 100 Oxygen Delivery Me thod Room Air HENMT: normocephalic, head/scalp atraumatic, hearing grossly normal bilaterally and external ears normal Eyes: PERRL, EOMs intact bilaterally and conjunctivae normal Neck/C-Spine: visual inspection normal and trachea midline Respiratory: breath sounds equal bilaterally, normal respiratory effort, clear to auscultation bilaterally and no wheezes Cardiovascular: normal heart rate noted, regular rhythm noted and no murmur Gastrointestinal: abdomen soft to palpation, nontender to palpation, nondistended and normoactive bowel sounds Back/Pelvis: thoracic spine ROM normal and lumbar spine ROM normal Neurology: 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, no focal motor deficit noted, speech normal and GCS normal Psychiatry: mental status grossly normal, oriented x3, thought process normal, cooperative, affect normal, psychomotor activity normal and memory normal DS: Data Data Completed and Pending Labs on day of discharge: Labs from last 24 hours 06/21/24 06/20/24 05:30 04:50 WBC 9.4 H RBC 4.3 Hgb 7.8 L Hct 25.9 L MCV 60.9 L MCH 18.4 L MCHC 30.2 L RDW 24.1 H Plt Count 461 H MPV 8.3 Gran % 49.5 Lymph % (Auto) 41.2 Dixie % (Auto) 7.3 Eos % (Auto) 1.8 Baso % (Auto) 0.2 Lymph # (Auto) 3.9 H Dixie # (Auto) 0.7 L Eos # (Auto) 0.2 Baso # (Auto) 0.0 Absolute Gran (auto) 4.6 Sodium 134 L Potassium 3.6 Chloride 102.0 Carbon Dioxide 29 Anion Gap 3.0 L BUN 12 Creatinine 0.5 L Estimated GFR 137.6 Glucose 220 H Calcium 8.1 L Phosphorus 3.5 Magnesium 1.6 L TSH 1.19 Discharge Plan Discharge Disposition: Home, Self-Care Condition: Improved Discharge Medications: New insulin glargine [Lantus U-100 Insulin] 100 unit/mL solution 15 unit subcut BID Qty: 10 0RF aspirin 81 mg tablet,delayed release (DR/EC) 81 mg PO DAILY Qty: 30 0RF lisinopril 5 mg tablet 5 mg PO DAILY Qty: 30 0RF atorvastatin [Lipitor] 10 mg tablet 10 mg PO QPM Qty: 30 0RF Continued insulin lispro 100 unit/mL insulin pen 1 sliding scale dose SUBCUT TIDCC PRN (Reason: hyperglycemia) Patient Comments: INJECT SUBCUTANEOUSLY THREE TIMES DAILY PER SLIDING SCALE. (max of 30 units/day. sliding scale blood sugar <150=no units, 150-199=2 units, 200- 249=4 units, 250-299=6 units,300-349=8 units, >350=10 units) Discharge Orders: Discharge Order (Routine); Ordered 06/21/24 Ordered By: Luis Armando Cristina Activity: increase activity as tolerated Diet: diabetic diet Interventions: Discharge Assessment Last Done: 06/21/24 12:41 MED/SURG & ICU Observation Charge Sheet Last Done: 06/21/24 12:45 Patient Instructions: How to Give an Insulin Injection (DC), Meal Planning with Diabetes Exchanges (DC) Forms: Portal/Health Info Access Inst Follow-Ups: [facility] [Other] - 06/25/24 9:30 am Ramiro Liriano [Primary Care Provider] - 06/26/24 10:45 am Discharge Date/Time: 06/21/24 12:47
== END 2024-06-21 12:47 | disposition home or self-care (01) ==
LOC: MS 20:46 → ED 20:46 → MS 06-19 00:15
PROVIDERS: ADMIT Nurse Practitioner Family; ATTEND Family Medicine